=== PATIENT | female | born 1965 ===

== ENCOUNTER 2017-11-16 06:49 | Day surgery (SDC) | payer OTHER ==
[~2017-11-16] VITALS: Ht 157.5 cm; Wt 106.6 kg
[~2017-11-16 06:49] MED LIST: AMITRIPTYLINE H50 MG PO; GLIPIZIDE10 MG PO; HEARTBURN RELI150 M1 PO; LANTUS100 UNITS/ SUB-Q; LISINOPRIL5 MG PO; MECLIZINE HCL12.5 MG PO; METFORMIN HCL1000 MG PO; PAXIL40 MG PO
== END 2017-11-16 09:30 | disposition home or self-care (01) ==
LOC: DS 06:49 → OPS 06:49 → DS 08:15 → OPS 08:15
PROVIDERS: Ophthalmology
PROC: 08RK3JZ Replacement of Left Lens with Synthetic Substitute, Percutaneous Approach (ICD-10-PCS; principal; 2017-11-16 08:15)
DX: E11.36 Type 2 diabetes mellitus with diabetic cataract (principal); H25.812 Combined forms of age-related cataract, left eye; M19.90 Unspecified osteoarthritis, unspecified site; G47.30 Sleep apnea, unspecified; K21.9 Gastro-esophageal reflux disease without esophagitis; I10 Essential (primary) hypertension; E78.00 Pure hypercholesterolemia, unspecified; F17.210 Nicotine dependence, cigarettes, uncomplicated; Z83.3 Family history of diabetes mellitus; Z97.4 Presence of external hearing-aid; Z79.84 Long term (current) use of oral hypoglycemic drugs; Z79.899 Other long term (current) drug therapy
CPT/HCPCS: J2250; J3010